=== PATIENT | male | born 1950 | race Caucasian/White ===

== ENCOUNTER → 2018-06-03 15:34 | Outpatient (CLI) | payer MEDICARE, SELFPAY ==
--- NOTE | 2018-06-03 | NASAL_PTH ---
PATIENT: ABBIE RECINOS LOC: [facility] U#:[id number] AGE/SX: 74/M ROOM: RE06/03/[address]: Dr. Mesfin Simmons MD : 1950 BED: DIS: SPEC #: [id number] RECD: 06/04/18 15:12 STATUS: TARUN LUCIO #: [id number] MEENA: 06/03/18 00:[address]: Mesfin Simmons DEPT: SURGICAL PATHOLOGY RECD BY: Marquez Solano ENTERED: 06/05/18 08:39 SP TYPE: NASAL SPEC OTHR DR: SANDRO Tissues: Nose, NOS Procedures: Surgery Specimen Level IV HEADER OPERATION: Excision of left intranasal mass PRE-OP DIAGNOSIS: Left intranasal mass TISSUE SUBMITTED: Left intranasal mass MICROSCOPIC DIAGNOSIS Left intranasal mass, biopsy: Consistent with squamous papilloma. See comment. LEON:cj 06/06/18 COMMENT The specimen appears to consists of superficial portion of the lesion, excision of residual lesion is suggested, if clinically indicated. Case has been reviewed in consultation with Dr. Boo who concurs with the above diagnosis. IDC:AM MICROSCOPIC DESCRIPTION Slides are reviewed. GROSS DESCRIPTION Received in fixative is one container labeled with the patient's name and designated left intranasal mass. The specimen consists of a piece of lopez, indurated tissue measuring 0.9 x 0.4 x 0.3 cm. The specimen is inked, bisected and submitted entirely in one cassette. / SJ:rg 06/05/18 TC:1 CPT: 33397
--- OUTSIDE RECORDS SUMMARY | 2018-07-21 22:58 | XMS RPT_ITS ---
:1950 Author Organization [facility] Care Team Providers Name Role Phone Mesfin Simmons Attending Unavailable Mesfin Simmons Referring Unavailable PROBLEMS PROBLEMS No Problem Records FoundPROCEDURES PROCEDURES No Procedure Records FoundRESULTS RESULTS NASAL SPECIMEN Observed: 06/03/2018 Status: F Source: [facility] 12:00 AM [facility] REPOSITORY Patient: ABBIE RECINOS : 1950 (67/M) Acct Num: [id number] Phys: Mesfin Simmons MD Unit Num: [id number] Loc: LABSPEC Specimen: [id number] Received: 06/04/181511 Spec Type: NASAL SPEC TISSUES 1 TISSUES: Nose, NOS COMMENT The specimen appears to consists of superficial portion of the lesion, excision of residual lesion is suggested, if clinically indicated. Case has been reviewed in consultation with Dr. Boo who concurs with the above diagnosis. IDC:AM GROSS DESCRIPTION Received in fixative is one container labeled with the patient's name and designated left intranasal mass. The specimen consists of a piece of lopez, indurated tissue measuring 0.9 x 0.4 x 0.3 cm. The specimen is inked, bisected and submitted entirely in one cassette. / Harper 06/05/18 TC:1 CPT: 94145 HEADER OPERATION: Excision of left intranasal mass PRE-OP DIAGNOSIS: Left intranasal mass TISSUE SUBMITTED: Left intranasal mass MICROSCOPIC DESCRIPTION Slides are reviewed. MICROSCOPIC DIAGNOSIS Left intranasal mass, biopsy: Consistent with squamous papilloma. See comment. LEON:cj 06/06/18 Signed Mor Lopez 06/07/18 <signature on file> Performed By: #### PNASAL #### [facility] [address] [place], [address] ALLERGIES ALLERGIES No Allergies Records FoundENCOUNTERS ENCOUNTERS ADMIT/DISCHARGE ACCOUNT ADMITTING ENCOUNTER LOCATION SOURCE NUMBER CLASS 06/03/2018 [id number] [facility] ing:LABSPEC Repository PAYERS PAYERS ENCOUNTER GUARANTOR PAYER SUBSCRIBER SOURCE 06/03/2018 ABBIE ARENAS Primary Insurance:AETSONYA GILLETTEKDOB: [facility] MCRPolicy Number: [id number], [place] [address]Ahb: Date:[id number] BOX Repository [id number] LEESA SANCHEZ ([place]) [id number]: 06/03/2018 Secondary NOT GIVENUNK Sayra Insurance:SELF PAY Community INSURANCEPolicy Number: Hospital Effective Repository Date:2018-06-03
== END ==
PROVIDERS: Referring Provider Otolaryngology; Visit Provider Otolaryngology
DX: R22.9 Localized swelling, mass and lump, unspecified (principal)
CPT/HCPCS: 88305